=== PATIENT | male | born 1950 | race Caucasian/White ===

== ENCOUNTER 2017-05-04 11:58 | Emergency (ER) | payer SELFPAY ==
[2017-05-04] MEDS ORDERED: DEXAMETHASONE SOD PHOSPHATE 10MG/ML 1ML VIAL ONE (12:32)
[2017-05-04] MEDS ORDERED: KETOROLAC TROMETHAMINE 30MG/ML ONE (12:33)
== END 2017-05-04 13:02 | disposition home or self-care (01) ==
LOC: EDH 11:58
DX: M54.32 Sciatica, left side (principal); I10 Essential (primary) hypertension; E78.5 Hyperlipidemia, unspecified
CPT/HCPCS: 99281; J1100; J1885